=== PATIENT | female | born 2000 | race Caucasian/White ===

== ENCOUNTER 2018-01-04 21:08 | Emergency (ER) | payer OTHER, MEDICAID, SELFPAY ==
--- NOTE | 2018-01-04 21:10 | ED_ITS ---
HPI - SOB/Dyspnea General Chief Complaint: Upper Respiratory Symptoms Stated Complaint: PROBLEMS BREATHING Time Seen by Provider: 01/04/18 21:09 Source: patient Mode of arrival: ambulatory Limitations: no limitations History of Present Illness 17-year-old otherwise healthy female here for evaluation of approximately 1 week of a fullness sensation in the back of her throat. She states she still was tolerating secretions and is able to swallow however she does occasionally have the sensation that things are getting stuck in her esophagus. No problems breathing. No trauma. No fevers. States she does have some neck pain and feels like things are ?hole? when she turns her neck. Did have an episode of reflux that ended approximately 1 month ago. No current problems with reflux that she describes. No ear pain. Has had some sinus congestion recently. No sore throat. Earlier this week she was in [place] and went to the emergency department where she states that they did an x-ray of her neck and told her that everything was fine. She was not discharged with any medications. She also denies any other symptoms associated with hyperthyroidism such as hair loss , weight loss, excessive energy. She does have an IUD in place so has no change in her menses. Related Data Previous Rx's Medication Instructions Recorded ranitidine HCl 150 mg PO BID #60 cap 01/04/18 Allergies Allergy/AdvReac Type Severity Reaction Status Date / Time No Known Drug Allergies Allergy Verified 01/04/18 21:22 Review of Systems Constitutional Denies chills, Denies fatigue, Denies fever(s) and Denies headache(s) ENT Ears, Nose, Mouth, and Throat: Denies change in voice, Denies dental pain, Reports dysphagia, Denies vertigo, Denies dizziness, Reports dry mouth, Denies facial pain, Denies headache(s), Denies lip swelling, Denies mouth lesions, Denies nose pain, Denies disequilibrium, Denies tinnitus, Denies sinus pain, Denies sinus pressure, Denies sore throat, Reports throat swelling and Denies tongue swelling Cardiovascular Denies chest pain and Denies dyspnea Respiratory Denies dyspnea and Denies wheezing Gastrointestinal Gastrointestinal: Denies abdominal pain, Reports dysphagia, Denies diarrhea, Denies nausea and Denies vomiting Musculoskeletal Denies myalgias and Denies arthralgias Integumentary/Breasts Denies change in hair, Denies change in pigmentation, Denies dry skin, Denies lesions and Denies rash Neurologic Denies vertigo, Denies dizziness, Denies headache(s) and Denies disequilibrium Endocrine Denies fatigue Hematologic/Lymphatic Denies easy bleeding and Denies easy bruising Allergic/Immunologic Denies urticaria, Denies lip swelling, Denies seasonal rhinorrhea, Reports throat swelling, Denies tongue swelling and Denies wheezing [facility] Medical History Healthy adult (Acute) Surgical History History of vaginal surgery (Resolved 01/2016) Exam Initial Vital Signs Initial Vital Signs: Vital Signs Temperature 98.9 F 01/04/18 21:18 Pulse Rate 85 01/04/18 21:18 Respiratory Rate 16 01/04/18 21:18 Blood Pressure 121/82 H 01/04/18 21:18 Pulse Oximetry 99 01/04/18 21:18 Const General: cooperative, healthy appearing, comfortable, well developed, well groomed and No acute distress Orientation: alert, awake and oriented x3 HENMT Head: normal to inspection, normocephalic and atraumatic Ears: TM's normal bilaterally Nose: external nose normal and nasal mucous membranes and turbinates normal Face and sinus: normal facial exam and face symmetric Mouth: oral mucosae normal, lip normal and tongue normal Teeth and gingiva: dentition normal Throat: posterior oropharynx normal, uvula midline and no uvular edema Neck Neck: normal visual inspection, no meningeal signs, trachea midline, No anterior neck swelling, lymphadenopathy (Right-sided anterior cervical and posterior cervical), No midline deformity and tender (Over the lymph nodes) Thyroid: thyroid normal, not diffusely enlarged and not firm Lymphatic: lymphadenopathy Chest Chest: normal inspection of the chest and normal palpation of entire chest wall Resp Effort & Inspection: normal respiratory effort Auscultation: clear to auscultation bilaterally Cardio Rate: regular rate Rhythm: regular rhythm Pulses: radial pulses present Skin Lesions: no lesions Rashes: no rashes Neuro General: alert, awake and oriented x3 Extrem General: normal to inspection and capillary refill normal Psych Appearance: grossly normal and well kempt Course Orders Ordered: Discontinued Medications Al Hydrox/Mg Hydrox/Simethicone 20 ml/ Lidocaine HCl 15 ml 0 ml PO NOW ONE Stop: 01/04/18 21:35 Vital Signs - 8 hr 01/04/18 21:18 Temperature 98.9 F Pulse Rate 85 Respiratory Rate 16 Blood Pressure 121/82 H Pulse Oximetry 99 MDM - SOB/Dyspnea MDM Narrative Medical decision making narrative: Patient has no respiratory distress. Has a couple right-sided lymph nodes that are somewhat tender. This could be the cause of the ?swelling? in the tenderness that she has in her neck. Her thyroid exam is unremarkable. She expressed several times symptoms that are consistent with reflux disease. She is not currently on any reflux medicines. She is tolerating her secretions. No signs of dehydration. The symptoms have been going on for 1 week. Had a long discussion with the patient and family who was at bedside. Will hold on any radiologic studies for now. Will start her on Zantac to see if this does not help her symptoms. She was instructed on eating a soft diet. Instructed that she needs to call her primary doctor on Saturday for a follow-up to discuss the indications for referral to see GI. Feel that she does not need a CT scan of her neck currently. I have low suspicion for an infectious etiology. Low suspicion for an esophageal obstruction. Patient was given return precautions. She expressed understanding and agreement with plan. Discharge Plan Departure Patient Disposition: Home Clinical Impression: Dysphagia Instructions: Esophageal Dysphagia Activity Restrictions/Additional Instructions: Take the Zantac that you were given a prescription for today as directed. Recommend that you eat a soft diet. Contact your primary doctor on Saturday to discuss the indications to see GI. Return to the emergency department for any new symptoms, worsening symptoms, problems breathing, rashes, or any other concerning symptoms. Prescriptions: New ranitidine HCl 150 mg capsule 150 mg PO BID Qty: 60 RF: 0
[2018-01-04 21:18] VITALS: BP 121/82; PULSE 85; RESP 16; TEMP 37.2; O2SAT 99; BMI 21.2
[2018-01-04] MEDS: MAG HYDROX/ALUMINUM/SIMETH SUS 20 ML, LIDOCAINE VISCOUS 2% 15 ML PO (21:38)
[2018-01-04 22:14] VITALS: BP 113/75; PULSE 75; RESP 16; O2SAT 100
== END 2018-01-04 22:15 | disposition home or self-care (01) ==
PROVIDERS: Emergency Provider Emergency Medicine; Family Provider Family Medicine; PCP Family Medicine
DX: R13.10 Dysphagia, unspecified (principal)
CPT/HCPCS: 99282

== ENCOUNTER 2018-07-06 20:41 | Emergency (ER) | payer OTHER, MEDICAID, SELFPAY ==
[2018-07-06 21:27] VITALS: BP 111/77; PULSE 99; RESP 16; TEMP 36.6; O2SAT 100; BMI 21.0
--- NOTE | 2018-07-06 22:00 | PC.NURSE ---
Patient states she pulled out a tampon that was not well saturated yesterday and feels like it is not right. Has not visualized the vagina since, but states it feels like there is a tampon in there, even though there is not. No vaginal bleeding since. Has IUD.
--- NOTE | 2018-07-06 22:47 | ED_ITS ---
HPI - Female Genitourinary General Chief complaint: Urogenital-Female Stated complaint: states girl problems Time Seen by Provider: 07/06/18 22:47 Source: patient Mode of arrival: ambulatory Limitations: no limitations History of Present Illness HPI Narrative: The patient is on long-acting control she still has regular breathing. She put in a tampon this morning due to irregular bleeding. She put a tampon out, the tampon felt like it was stuck. She is here complaining of vaginal swelling. She has had no fever chills. She has no dysuria, she has no purulent discharge. She denies itching. She has had no trauma. She has used no new medications, topical OTC preparations or lubricants. She has no prior history of reaction to pads or tampons. The tampon was in about 4 hr. She tried to put another tampon in, felt the vagina was too swollen to put the tampon in. Related Data Home Medications Medication Instructions Recorded Confirmed immune support PO 02/12/18 05/05/18 probiotic PO 02/12/18 05/05/18 ranitidine 150 mg tablet 150 mg PO BID tab 02/12/18 05/05/[address] PO 02/12/18 05/05/18 Allergies Allergy/AdvReac Type Severity Reaction Status Date / Time amoxicillin Allergy Intermediate Verified 05/05/18 15:19 Review of Systems Constitutional Denies chills and Denies fever(s) Gastrointestinal Gastrointestinal: Denies abdominal pain and Denies change in bowel habits Genitourinary Reports as per HPI, Denies dysuria, Denies pelvic pain, Denies flank pain, Denies urinary incontinence, Denies urinary urgency, Denies vaginal discharge, Denies vaginal odor and Denies vaginal pruritus Musculoskeletal Denies back pain Integumentary/Breasts Denies pruritus, Denies erythema and Denies rash [facility] Medical History Generalized anxiety disorder (Chronic) Parent-child conflict (Chronic) Vaginal septum (Inactive) Raynaud's phenomenon without gangrene (Chronic 10/09/16) Acne vulgaris (Chronic 10/09/16) Healthy adult (Acute) Presence of intrauterine contraceptive device (Resolved 02/06/17) Surgical History History of vaginal surgery (Resolved 01/2016) Social History Smoking Status: Never smoker Social History Smoking Status: Never smoker Exam Initial Vital Signs Initial Vital Signs: Vital Signs Temperature 97.9 F 07/06/18 21:27 Pulse Rate 99 H 07/06/18 21:27 Respiratory Rate 16 07/06/18 21:27 Blood Pressure 111/77 07/06/18 21:27 Pulse Oximetry 100 07/06/18 21:27 Const General: cooperative and well developed Nutritional Appearance: well nourished Orientation: alert, awake, oriented x3 and not confused GI Inspection: non-distended Palpation: soft, no hepatosplenomegaly, No guarding, No pulsatile mass and No tender Auscultation: normal bowel sounds External Female Exam: other (Slight edema with erythema to the labia majora. The labia minora is normal) Speculum Exam - Vagina: normal appearance of the vagina, normal vaginal discharge, not erythematous, no lesions, No vaginal bleeding and no swelling Speculum Exam - Cervix: normal appearance of the cervix OB/External & Speculum: No vaginal bleeding Skin General: no rashes or lesions noted Neuro General: alert, oriented x3, gait normal and no focal motor deficits Speech: speech normal Course Course Narrative: There is very mild inflammation to the labia majora only, there does not appear to be infection. She is advised not to use tampons, use pads were necessary. Vital Signs - 8 hr 07/06/18 21:27 Temperature 97.9 F Pulse Rate 99 H Respiratory Rate 16 Blood Pressure 111/77 Pulse Oximetry 100 Discharge Plan Departure Patient Disposition: Home Clinical Impression: Vaginal irritation Instructions: DI for Atopic Dermatitis - Adult Activity Restrictions/Additional Instructions: I would recommend no special treatment. Shower and bathe regularly, using regular soaps. Avoid tampons, use pads when necessary. Follow up with your doctor in 1 week if symptoms persist. Return here if you develop a fever. Prescriptions: No Action ranitidine HCl [Zantac] 150 mg tablet 150 mg PO BID RF: [address] PO RF: 0 immune support PO RF: 0 probiotic PO RF: 0 Referrals: Doug Hoang MD [Primary Care Provider] -
[2018-07-06 23:06] VITALS: BP 105/73; PULSE 78; RESP 18; O2SAT 98
== END 2018-07-06 23:07 | disposition home or self-care (01) ==
PROVIDERS: Emergency Provider Emergency Medicine; Family Provider Family Medicine; PCP Family Medicine
DX: N89.8 Other specified noninflammatory disorders of vagina (principal)
CPT/HCPCS: 99282

== ENCOUNTER → 2020-08-27 10:14 | Outpatient (CLI) | payer OTHER, MEDICAID, SELFPAY ==
[2020-08-27 10:29] LABS: Hematocrit 37.5 % (36-46); Hemoglobin 12.4 g/dL (12.0-16.0); Mean Corpuscular Hemoglobin 27.8 PG (26-34); Mean Corpuscular Volume 84.4 fL (80-100); Platelet Count 240 X10^3/uL (150-400); Red Blood Cell Count 4.44 X10^6/uL (4.0-5.2); Red Cell Distribution Width 18.1 % (11.6-14.8)
[2020-08-27 11:05] LABS: Alanine Aminotransferase 12 IU/L (<35); Albumin 4.7 g/dL (3.5-5.0); Albumin Globulin Ratio 1.6 (1.0-2.8); Alkaline Phosphatase 50 U/L (38-126); Aspartate Aminotransferase 19 IU/L (14-36); BUN Creatinine Ratio 14.3 (6-22); Bilirubin Total 0.3 mg/dL (0.2-1.3); Blood Urea Nitrogen 10 mg/dL (7-17); Calcium 9.9 mg/dL (8.4-10.2); Carbon Dioxide 29 mmol/L (22-32); Chloride 103 mmol/L (98-107); Estimated Glomerular Filt Rate > 60.0 mL/min (>60); Glucose 98 mg/dL (70-100); HEMOLYSIS < 15 (0-50); Potassium 4.1 mmol/L (3.4-5.1); Sodium 140 mmol/L (137-145); Total Protein 7.7 g/dL (6.3-8.2)
[2020-08-27 11:34] LABS: TSH w/ Reflex to FT4 1.85 uIU/mL (0.47-4.68)
== END ==
PROVIDERS: Family Provider Family Medicine; PCP Nurse Practitioner Family; Referring Provider Nurse Practitioner Family; Visit Provider Nurse Practitioner Family
DX: Z00.00 Encounter for general adult medical examination without abnormal findings (principal); F41.1 Generalized anxiety disorder; R13.10 Dysphagia, unspecified
CPT/HCPCS: 36415; 80053; 84443; 85027